=== PATIENT | male | born 1990 | race Caucasian/White ===

== ENCOUNTER 2016-08-05 01:18 | Emergency (ER) | payer BC ==
[~2016-08-05] VITALS: Ht 177.8 cm; Wt 77.0 kg
[2016-08-05 01:37] VITALS: Ht 177.8 cm; Wt 77.0 kg
--- NOTE | 2016-08-05 04:34 | RADRPT ---
PROCEDURE: XR right Wrist. CLINICAL INDICATION: Trauma TECHNIQUE: 4 views of the right wrist were obtained including scaphoid view. COMPARISON: No prior studies are available for comparison. FINDINGS: No fracture or dislocation is seen. No definite lytic or blastic bony lesion. No marked soft tissu e swelling. No definite abnormal calcifications. No significant degenerative change. IMPRESSION: No definite acute traumatic abnormality. . RPTAT: [facility] Linda Mckay Physician Date Time Electronically viewed and signed by Linda Mckay Physician on 08/05/2016 04:33 LE/
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
[2016-08-05] MEDS ORDERED: IBUP400T22 PO (04:54)
[2016-08-05 05:35] VITALS: BP 127/82; PULSE 70; RESP 16
== END 2016-08-05 05:36 | disposition home or self-care (01) ==
LOC: FTE 01:18
DX: M79.601 Pain in right arm (principal)